=== PATIENT | female | born 1945 | race Caucasian/White ===

== ENCOUNTER 2019-02-06 02:34 | Emergency (ER) | payer MEDICARE, OTHER ==
[~2019-02-06] VITALS: Ht 162.6 cm; Wt 74.8 kg
[~2019-02-06 02:34] MED LIST: ESTR-7 PO; METO50TA16 PO
[2019-02-06] MEDS ORDERED: ASPIRIN 81 MG TAB.CHEW PO ONE (02:45)
[2019-02-06] MEDS ORDERED: ACETAMINOPHEN ES 500 MG TABLET PO ONE (02:45)
[2019-02-06] MEDS ORDERED: NITROGLYCERIN OINT 1 GM PACKET TP ONE ×2 (02:45→02:53)
--- NOTE | 2019-02-06 02:46 | NUR ---
DR SHELL AT BEDSIDE FOR MSE.
[2019-02-06] MEDS ORDERED: ASPIRIN 81 MG TAB.CHEW ONE (02:52)
[2019-02-06] MEDS ORDERED: ACETAMINOPHEN 325 MG TABLET ONE (02:52)
[2019-02-06 03:18] VITALS: BP 166/79
[2019-02-06] MEDS ORDERED: GABA-532 PO (03:18)
[2019-02-06] MEDS ORDERED: TEMA15CA5 PO (03:18)
[2019-02-06] MEDS ORDERED: QUET100T PO (03:18)
[2019-02-06] MEDS ORDERED: METO50TA16 PO (03:18)
[2019-02-06 03:25] LABS: HEMATOCRIT 42.8 % (37-47); HEMOGLOBIN 14.3 G/DL (12.0-16.0); MEAN CORPUSCULAR HEMOGLOBIN 30.1 UUG (27.0-31.0); MEAN CORPUSCULAR HGB CONC 33 g/dL (32.0-37.0); MEAN CORPUSCULAR VOLUME 90.3 FL (81.0-99.0); RED BLOOD CELL COUNT(AUTO) 4.74 MIL/UL (4.2-5.4); WHITE BLOOD COUNT (AUTO) 9.3 K/UL (4.0-11.2)
[2019-02-06 03:26] LABS: BASOPHILS # (AUTO) 0.1 K/uL (0.0-8.0); BASOPHILS % (AUTO) 0.7 % (0.0-2.0); EOSINOPHILS % (AUTO) 0.3 % (0.0-7.0); LYMPHOCYTES # (AUTO) 1.8 K/UL (0.8-4.8); LYMPHOCYTES % (AUTO) 19.6 % (20.5-51.5); MONOCYTES # (AUTO) 0.7 K/UL (0.1-1.30); MONOCYTES % (AUTO) 7.4 % (0.0-11.0); NEUTROPHILS # (AUTO) 6.7 K/UL (1.8-8.9); PLATELET COUNT (AUTO) 242 K/UL (150-450)
[2019-02-06 03:30] LABS: CARBON DIOXIDE 22 mmol/L (21-32); CHLORIDE 106 mmol/L (98-107); GLUCOSE 101 mg/dL (74-106); POTASSIUM 3.7 mmol/L (3.5-5.1)
[2019-02-06 03:31] LABS: ALKALINE PHOSPHATASE 90 U/L (50-136); ASPARTATE AMINOTRANSFERASE 82 U/L (15-37); BILIRUBIN,DIRECT 0.3 mg/dL (0.0-0.2); BILIRUBIN,TOTAL 0.7 mg/dL (0.1-1.0); CREATININE 0.8 mg/dL (0.6-1.3); UREA NITROGEN, BLOOD 20 mg/dL (7-20)
[2019-02-06 03:32] LABS: ALANINE AMINOTRANSFERASE 142 U/L (14-59); TOTAL PROTEIN, SERUM 7.7 g/dL (6.4-8.2)
--- NOTE | 2019-02-06 07:19 | NUR ---
Received patient in bed, vitals stable, no distress noted at this time.
--- NOTE | 2019-02-06 07:50 | NUR ---
Patient provided breakfast and is able to eat independently.
--- NOTE | 2019-02-06 08:20 | NUR ---
Patient noted to be sinus tachycardia on the monitor 130-150 bpm, notified Dr. Valles, order received for stat EKG.
[2019-02-06 09:22] LABS: ETHANOL < 3 MG/DL (0-0)
[2019-02-06 09:23] LABS: *AMPHETAMINE, URINE NEGATIVE (NEGATIVE); *BARBITURATE, URINE NEGATIVE (NEGATIVE); *CANNABINOID, URINE NEGATIVE (NEGATIVE); *COCCAINE, URINE NEGATIVE (NEGATIVE); *OPIATE, URINE NEGATIVE (NEGATIVE); *PHENCYCLIDINE SCREEN,URINE NEGATIVE (NEGATIVE)
[2019-02-06 09:48] LABS: ACETAMINOPHEN < 2.0 ug/mL (10-30)
--- NOTE | 2019-02-06 09:52 | NUR ---
Pt is medically cleared by Dr Valles. placed a call to [facility] team evaluater Hilda FUENTES per Md order, awaiting call back.
--- NOTE | 2019-02-06 10:12 | NUR ---
Spoke to Hilda FUENTES from [facility] about 1 hour.
[2019-02-06 10:49] LABS: *CLARITY,URINE CLEAR (CLEAR)
[2019-02-06 10:50] LABS: *BLOOD, URINE NEGATIVE (NEGATIVE); *COLOR,URINE DARK YELLOW (YELLOW); UGLUCOSE NEGATIVE (NEGATIVE)
[2019-02-06 10:51] LABS: *BILIRUBIN,URIN 1+ (NEGATIVE); *KETONES,URINE 2+ (NEGATIVE); *UROBILINOGEN,URINE 0.2 E.U./dl (NORMAL); LEUKOCYTE ESTERASE ,URINE NEGATIVE (NEGATIVE); NITRITE, URINE NEGATIVE (NEGATIVE)
[2019-02-06 10:57] LABS: BACTERIA,URINE NONE SEEN /HPF (NONE SEEN); RBC,URINE 0-3 /HPF (0-3); SQUAMOUS EPITHELIAL CELL,UR FEW /HPF (NONE SEEN); URINE AMORPHOUS URATE FEW /HPF; WBC,URINE 0-3 /HPF (0-3)
[2019-02-06 10:58] LABS: MUCUS,URINE FEW /LPF (0-FEW)
--- NOTE | 2019-02-06 12:30 | NUR ---
Patient provided a lunch tray, patient able to eat independently.
--- NOTE | 2019-02-06 14:00 | NUR ---
Patient reported anxiety, asked if physician can give her something to help her relax. Physician notified.
[2019-02-06] MEDS ORDERED: diphenhydrAMINE 50 MG CAPSULE ONE (14:08)
[2019-02-06] MEDS ORDERED: diphenhydrAMINE 50 MG CAPSULE PO ONE (14:15)
--- NOTE | 2019-02-06 16:02 | NUR ---
Contacted Desiree the international guest coordinator for [facility], it was communicated that the patient is accepted however, a bed is not currently avialable. The international guest coordinator has notified their soft sugar supervisor in [place] that this patient is a priority as she has recently been discharged from there and it is ideal not to send her to [place].
--- NOTE | 2019-02-06 17:45 | NUR ---
Patient provided an evening meal, tolerated well.
--- NOTE | 2019-02-06 17:56 | NUR ---
Contacted Desiree field logistics coordinator and received an update that they are attempting "shuffle patients around to make room for patient. She will contact us when she is able to get a bed.
--- NOTE | 2019-02-06 18:59 | NUR ---
Report given to oncoming shift.
--- NOTE | 2019-02-06 19:12 | NUR ---
Rosalva Velazquez LCSW [facility], "Pt is bad [facility]".
--- NOTE | 2019-02-06 19:14 | NUR ---
Hilda Eckert RN Pet called back, stated working on getting pt transferred to [facility].
--- NOTE | 2019-02-06 22:20 | NUR ---
Received transfer information Patient going to [facility], Accepting MD is Dr. Garcia and Dr. Toney. Number to report to ext [phone].
--- NOTE | 2019-02-06 22:26 | NUR ---
Report given to Brandi FUENTES [facility].
--- NOTE | 2019-02-06 22:36 | NUR ---
Called [facility] for transport of patient to [facility]. ETA 30 min.
--- NOTE | 2019-02-06 23:35 | NUR ---
[facility] ambulance arrived to ER. Report and documentation provided to EMT.
--- NOTE | 2019-02-06 23:55 | NUR ---
Pt out of ER via [facility] [place]. No falls noted, all belongings taken VSS, patient to be transferred to [facility].
== END 2019-02-07 00:15 | disposition short-term general hospital (02) ==
LOC: EDBD 02:34 → ER 02:34 → MERGE 02:34 → ER 02-07 00:15
DX: R07.9 Chest pain, unspecified (principal); I25.2 Old myocardial infarction; Z79.899 Other long term (current) drug therapy; Z59.0 Homelessness
CPT/HCPCS: 36415; 71045; 80048; 80076; 80307; 81000; 81001; 83880; 84484 ×3; 85025; 85379; 93005 ×2; 99285; G0480 ×2; G0481; Q0163; 70030-TC; A4663

== ENCOUNTER 2020-03-05 14:09 | Emergency (ER) | payer MEDICARE, OTHER ==
[~2020-03-05] VITALS: Ht 162.6 cm; Wt 68.0 kg
[~2020-03-05 14:09] MED LIST changes: +GABA-532 PO; +QUET100T PO; +TEMA15CA5 PO
[2020-03-05] MEDS ORDERED: BENAZEPRIL HCL 10 MG TABLET PO ONE (14:30)
[2020-03-05] MEDS ORDERED: BENAZEPRIL HCL 10 MG TABLET ONE (14:47)
--- NOTE | 2020-03-05 15:07 | NUR ---
edilma from [facility] called. contact info is [phone]
[2020-03-05 15:13] LABS: BASOPHILS % (AUTO) 0.4 % (0.0-2.0); HEMATOCRIT 42.3 % (31.2-41.9); HEMOGLOBIN 13.6 g/dL (10.9-14.3); LYMPHOCYTES % (AUTO) 18.7 % (20.5-51.5); MEAN CORPUSCULAR HEMOGLOBIN 29.4 uug (24.7-32.8); MEAN CORPUSCULAR HGB CONC 32 g/dL (32.3-35.6); MEAN CORPUSCULAR VOLUME 91.5 fL (75.5-95.3); MONOCYTES # (AUTO) 1.1 K/uL (2.0-10.0); MONOCYTES % (AUTO) 10.4 % (0.0-11.0); NEUTROPHILS # (AUTO) 7.6 K/uL (1.8-8.9); NEUTROPHILS % (AUTO) 70.5 % (38.5-71.5); PLATELET COUNT (AUTO) 218 K/uL (179-408); RED BLOOD CELL COUNT(AUTO) 4.62 MIL/uL (3.63-4.92); WHITE BLOOD COUNT (AUTO) 10.7 K/uL (3.8-11.8)
[2020-03-05 15:19] LABS: CREATININE 0.9 mg/dL (0.6-1.3); POTASSIUM 4.1 mmol/L (3.5-5.1)
[2020-03-05 15:25] LABS: BILIRUBIN,DIRECT 0.4 mg/dL (0.0-0.2); BILIRUBIN,TOTAL 1.1 mg/dL (0.2-1.0); TOTAL PROTEIN, SERUM 7.5 g/dL (6.4-8.2)
[2020-03-05] MEDS ORDERED: ACETAMINOPHEN ES 500 MG TABLET PO ONE (15:45)
[2020-03-05] MEDS ORDERED: ACETAMINOPHEN ES 500 MG TABLET ONE (16:10)
[2020-03-05 16:41] VITALS: BP 155/67
--- NOTE | 2020-03-05 16:44 | NUR ---
Patient discharged to home in stable condition. Written and verbal after care instructions given. Patient verbalizes understanding of instructions. Stressed follow up or return to ER for worsening s/s.
--- NOTE | 2020-03-05 16:44 | NUR ---
IV removed. Catheter intact and site benign. Pressure and 4x4 gauze applied to site. No bleeding noted.
== END 2020-03-05 16:44 | disposition home or self-care (01) ==
LOC: ER 14:11
DX: R51.9 Headache, unspecified (principal); I10 Essential (primary) hypertension; R94.31 Abnormal electrocardiogram [ECG] [EKG]; R25.1 Tremor, unspecified; F20.9 Schizophrenia, unspecified; F31.9 Bipolar disorder, unspecified; Z88.2 Allergy status to sulfonamides
CPT/HCPCS: 36415; 70030-TC; 71045; 85025; 93005; A4663; A9150

== ENCOUNTER 2020-03-06 08:48 | Inpatient (IN) | payer MEDICARE, OTHER ==
[~2020-03-06] VITALS: Ht 157.5 cm; Wt 85.7 kg
[~2020-03-06 08:48] MED LIST changes: -ESTR-7 PO
[2020-03-06 11:00] LABS: ETHANOL < 3 MG/DL (0-0)
[2020-03-06 11:43] LABS: *AMPHETAMINE, URINE POSITIVE (NEGATIVE); *CANNABINOID, URINE NEGATIVE (NEGATIVE); *COCCAINE, URINE NEGATIVE (NEGATIVE); *OPIATE, URINE NEGATIVE (NEGATIVE); *PHENCYCLIDINE SCREEN,URINE NEGATIVE (NEGATIVE)
[2020-03-06] MEDS ORDERED: MAG HYDROX/AL HYDROX/SIMETH 30 ML LIQUID UDC PO PRN (13:45)
[2020-03-06] MEDS ORDERED: CLONAZEPAM 0.5 MG TABLET PO PRN (13:45)
[2020-03-06] MEDS ORDERED: MAGNESIUM HYDROXIDE 30 ML LIQUID UDC PO PRN (13:45)
[2020-03-06 15:40] VITALS: BP 164/80
[2020-03-06] MEDS: GABAPENTIN 300 MG CAPSULE PO SCH (17:23)
[2020-03-06] MEDS: METOPROLOL TARTRATE 50 MG TABLET PO SCH (17:25)
[2020-03-06 20:00] VITALS: BP 116/52
[2020-03-06] MEDS ORDERED: hydrALAZINE HCL 25 MG TABLET PO PRN (21:30)
[2020-03-06] MEDS: TEMAZEPAM 7.5 MG CAPSULE PO PRN (22:00)
[2020-03-07 07:30] VITALS: BP 135/66
[2020-03-07] MEDS: GABAPENTIN 300 MG CAPSULE PO SCH ×3 (08:18→17:21)
[2020-03-07] MEDS: METOPROLOL TARTRATE 50 MG TABLET PO SCH ×2 (08:20→17:22)
[2020-03-07 09:48] LABS: CREATININE 0.7 mg/dL (0.6-1.3)
[2020-03-07 10:02] LABS: THYROID STIMULATING HORMONE 1.345 mIU/mL (0.358-3.740)
[2020-03-07 10:06] LABS: BASOPHILS % (AUTO) 0.3 % (0.0-2.0); EOSINOPHILS % (AUTO) 0.7 % (0.0-7.0); HEMATOCRIT 40.4 % (31.2-41.9); HEMOGLOBIN 13.4 g/dL (10.9-14.3); LYMPHOCYTES # (AUTO) 1.9 K/uL (20.0-40.0); LYMPHOCYTES % (AUTO) 33.7 % (20.5-51.5); MEAN CORPUSCULAR HEMOGLOBIN 30.3 uug (24.7-32.8); MEAN CORPUSCULAR HGB CONC 33 g/dL (32.3-35.6); MEAN CORPUSCULAR VOLUME 91.4 fL (75.5-95.3); MONOCYTES # (AUTO) 0.7 K/uL (2.0-10.0); MONOCYTES % (AUTO) 11.3 % (0.0-11.0); NEUTROPHILS # (AUTO) 3.1 K/uL (1.8-8.9); PLATELET COUNT (AUTO) 184 K/uL (179-408); RED BLOOD CELL COUNT(AUTO) 4.41 MIL/uL (3.63-4.92); WHITE BLOOD COUNT (AUTO) 5.8 K/uL (3.8-11.8)
[2020-03-07 11:23] LABS: *BILIRUBIN,URIN NEGATIVE (NEGATIVE); *BLOOD, URINE NEGATIVE (NEGATIVE); *CLARITY,URINE CLEAR (CLEAR); *COLOR,URINE YELLOW (YELLOW); *KETONES,URINE 1+ (NEGATIVE); LEUKOCYTE ESTERASE ,URINE NEGATIVE (NEGATIVE); NITRITE, URINE NEGATIVE (NEGATIVE); UGLUCOSE NEGATIVE (NEGATIVE)
[2020-03-07 12:29] LABS: BILIRUBIN,TOTAL 0.9 mg/dL (0.2-1.0); CREATININE 0.7 mg/dL (0.6-1.3); MAGNESIUM 2.2 mg/dL (1.8-2.4); PHOSPHOROUS 2.2 mg/dL (2.5-4.9); POTASSIUM 3.7 mmol/L (3.5-5.1); TOTAL PROTEIN, SERUM 6.5 g/dL (6.4-8.2)
[2020-03-07 17:15] VITALS: BP_SYST 113; BP_SYST 143; BP_DIAS 66; BP_DIAS 71
[2020-03-07 19:45] VITALS: BP 116/61
[2020-03-07] MEDS ORDERED: NEUTRA PHOS PACKET PO ONE (21:00)
[2020-03-07] MEDS ORDERED: QUETIAPINE FUMARATE 100 MG TABLET PO SCH (21:00)
[2020-03-08 07:30] VITALS: BP 132/68
[2020-03-08] MEDS: METOPROLOL TARTRATE 50 MG TABLET PO SCH ×2 (08:58→16:24)
[2020-03-08] MEDS: GABAPENTIN 300 MG CAPSULE PO SCH ×3 (08:58→16:23)
[2020-03-08 16:00] VITALS: BP 129/62
[2020-03-08 20:00] VITALS: BP 116/52
[2020-03-08] MEDS ORDERED: QUETIAPINE FUMARATE 100 MG TABLET PO SCH (21:00)
[2020-03-09 07:30] VITALS: BP 122/61
[2020-03-09] MEDS: GABAPENTIN 300 MG CAPSULE PO SCH ×3 (08:13→16:34)
[2020-03-09] MEDS: METOPROLOL TARTRATE 50 MG TABLET PO SCH ×2 (08:14→16:35)
[2020-03-09 16:00] VITALS: BP 154/65
[2020-03-09 20:00] VITALS: BP 115/52
[2020-03-09] MEDS: QUETIAPINE FUMARATE 100 MG TABLET PO SCH (20:12)
[2020-03-10 07:30] VITALS: BP 142/60
[2020-03-10] MEDS: METOPROLOL TARTRATE 50 MG TABLET PO SCH ×2 (08:12→16:15)
[2020-03-10] MEDS: GABAPENTIN 300 MG CAPSULE PO SCH ×3 (08:12→16:14)
[2020-03-10 11:09] VITALS: BP 142/60
[2020-03-10] MEDS ORDERED: CLONAZEPAM 0.5 MG TABLET PO PRN (15:15)
[2020-03-10 16:52] VITALS: BP 151/65
[2020-03-10 20:00] VITALS: BP 141/57
[2020-03-10] MEDS: QUETIAPINE FUMARATE 100 MG TABLET PO SCH (20:14)
[2020-03-10] MEDS: TEMAZEPAM 7.5 MG CAPSULE PO PRN (21:31)
[2020-03-11 07:30] VITALS: BP 136/54
[2020-03-11] MEDS: METOPROLOL TARTRATE 50 MG TABLET PO SCH ×2 (08:13→16:12)
[2020-03-11] MEDS: GABAPENTIN 300 MG CAPSULE PO SCH ×3 (08:13→16:12)
[2020-03-11 16:00] VITALS: BP 133/58
[2020-03-11] MEDS: ACETAMINOPHEN 325 MG TABLET PO PRN (16:38)
[2020-03-11 20:00] VITALS: BP 119/49
[2020-03-11] MEDS: QUETIAPINE FUMARATE 100 MG TABLET PO SCH (20:12)
[2020-03-12 07:30] VITALS: BP 131/56
[2020-03-12] MEDS: GABAPENTIN 300 MG CAPSULE PO SCH ×3 (08:17→17:16)
[2020-03-12] MEDS: METOPROLOL TARTRATE 50 MG TABLET PO SCH ×2 (08:18→17:17)
[2020-03-12 15:55] VITALS: BP 149/44
[2020-03-12 20:39] VITALS: BP 167/60
[2020-03-12] MEDS ORDERED: QUETIAPINE FUMARATE 100 MG TABLET PO SCH (21:00)
[2020-03-12] MEDS: TEMAZEPAM 7.5 MG CAPSULE PO PRN (23:08)
[2020-03-13 07:30] VITALS: BP 154/57
[2020-03-13] MEDS: GABAPENTIN 300 MG CAPSULE PO SCH ×3 (08:18→16:27)
[2020-03-13] MEDS: METOPROLOL TARTRATE 50 MG TABLET PO SCH ×2 (08:19→16:27)
[2020-03-13 16:00] VITALS: BP 110/53
[2020-03-13 20:15] VITALS: BP 140/57
[2020-03-13] MEDS ORDERED: QUETIAPINE FUMARATE 200 MG TABLET PO SCH (21:00)
[2020-03-13] MEDS ORDERED: QUETIAPINE FUMARATE 100 MG TABLET PO SCH (21:00)
[2020-03-13] MEDS: TEMAZEPAM 7.5 MG CAPSULE PO PRN (23:02)
[2020-03-14 07:30] VITALS: BP 128/68
[2020-03-14 08:29] VITALS: BP 128/68
[2020-03-14] MEDS: GABAPENTIN 300 MG CAPSULE PO SCH (08:29)
[2020-03-14] MEDS: METOPROLOL TARTRATE 50 MG TABLET PO SCH (08:29)
[2020-03-14] MEDS: ACETAMINOPHEN 325 MG TABLET PO PRN (09:08)
== END 2020-03-14 10:00 | DRG 885 ==
LOC: ER 08:48 → GPS 13:26
PROVIDERS: ADMIT Psychiatry & Neurology Psychiatry; ATTEND Internal Medicine
DX: F25.9 Schizoaffective disorder, unspecified (principal); Z91.14 Patient's other noncompliance with medication regimen; Z59.0 Homelessness; M06.9 Rheumatoid arthritis, unspecified; I10 Essential (primary) hypertension; Z87.440 Personal history of urinary (tract) infections; R51.9 Headache, unspecified; Z20.828 Contact with and (suspected) exposure to other viral communicable diseases; F41.9 Anxiety disorder, unspecified; E66.9 Obesity, unspecified; Z68.34 Body mass index [BMI] 34.0-34.9, adult; Z96.651 Presence of right artificial knee joint; Z79.899 Other long term (current) drug therapy; I67.2 Cerebral atherosclerosis; R74.01 Elevation of levels of liver transaminase levels; K59.00 Constipation, unspecified
CPT/HCPCS: 36415; 70450; 83735; 84100; 84443; 85025; 87086; A4663; G0480